=== PATIENT | female | born 2005 | race African-American/Black ===

== ENCOUNTER 2025-06-12 18:00 | Emergency (ER) | payer MEDICAID ==
[~2025-06-12] VITALS: Ht 162.6 cm; Wt 49.9 kg
[2025-06-12 18:42] LABS: APPEARANCE,URINE TURBID (CLEAR); PREGNANCY TEST URINE QUAL NEGATIVE (NEGATIVE)
[2025-06-12] MEDS ORDERED: NITR100C6 PO (18:57)
[2025-06-12 19:23] VITALS: BP 135/67; TEMP 98.4; O2SAT 99
== END 2025-06-12 19:23 | disposition home or self-care (01) ==
LOC: ER 18:15
DX: N39.0 Urinary tract infection, site not specified (principal); R31.9 Hematuria, unspecified; R30.0 Dysuria
CPT/HCPCS: 81001; 84703-TC; 87086-TC; 87186-TC